=== PATIENT | female | born 1975 | race African-American/Black ===

== ENCOUNTER 2018-09-04 07:46 | Day surgery (SDC) | payer BC ==
[~2018-09-04] VITALS: Ht 154.9 cm; Wt 79.6 kg
[2018-09-04 08:10] VITALS: BP 120/78; PULSE 87; TEMP 98.6
[2018-09-04] MEDS ORDERED: ZOLOFT 50MG50 MG PO (08:20)
[2018-09-04] MEDS ORDERED: ATARAX 25MG25 MG/TAB PO (08:20)
[2018-09-04] MEDS ORDERED: ADVIL200 MG PO (08:21)
[2018-09-04 09:25] VITALS: BP 103/76; PULSE 76; TEMP 97.8
[2018-09-04 09:40] VITALS: BP 110/77; PULSE 79
[2018-09-04 09:55] VITALS: BP 115/74; PULSE 81
== END 2018-09-04 10:27 | disposition home or self-care (01) ==
LOC: SDCO 07:46
DX: K64.0 First degree hemorrhoids (principal); Z87.19 Personal history of other diseases of the digestive system
CPT/HCPCS: OP; J2250; J2405; J3010; J7030

== ENCOUNTER → 2019-03-04 | Outpatient (CLI) | payer BC ==
[~2019-03-04] MED LIST: ADVIL200 MG PO; ATARAX 25MG25 MG/TAB PO; ZOLOFT 50MG50 MG PO
== END ==
LOC: COL.RAD 07:48
DX: R68.81 Early satiety (principal)
CPT/HCPCS: A9541

== ENCOUNTER 2019-04-05 07:27 | Day surgery (SDC) | payer BC ==
[~2019-04-05] VITALS: Ht 154.9 cm; Wt 81.0 kg
[~2019-04-05 07:27] MED LIST changes: +ZOLOFT 100MG100 MG PO; -ZOLOFT 50MG50 MG PO
[2019-04-05] MEDS ORDERED: FLEXERIL 1010 MG/TAB PO (07:42)
[2019-04-05] MEDS ORDERED: PRILOSEC 20MG20 MG PO (07:42)
[2019-04-05] MEDS ORDERED: ALLEGRA ALLERG180 MG PO (07:44)
[2019-04-05 08:06] VITALS: BP 118/71; PULSE 88; TEMP 98.5
[2019-04-05 08:54] VITALS: BP 117/64; PULSE 79; TEMP 97.4
--- NOTE | 2019-04-05 08:54 | NUR ---
Pt to [facility] via cart from ENDO. Pt drowsy, but awake. Denies pain or nausea. Pt ambulates to recliner with stand by assistance. Daughter in room. Warm blanket placed on pt for comfort. Call light within reach. Will continue to monitor.
[2019-04-05 09:09] VITALS: BP 114/75; PULSE 73
--- NOTE | 2019-04-05 09:09 | NUR ---
Pt resting. Denies needs. Call light within reach.
[2019-04-05 09:24] VITALS: BP 101/59; PULSE 74
--- NOTE | 2019-04-05 09:24 | NUR ---
Pt continues to rest. Pt takes sips of water without difficulties. Will continue to monitor. Call light within reach.
[2019-04-05 09:39] VITALS: BP 110/62; PULSE 80
--- NOTE | 2019-04-05 09:39 | NUR ---
Pt continues to rest. Taking sips of water without difficulties. Call light within reach.
--- NOTE | 2019-04-05 10:00 | NUR ---
Discharge instructions reviewed. Pt voices understanding. IV site disocontinued with all parts intact. Pt up to dress. Call light within reach.
--- NOTE | 2019-04-05 10:28 | NUR ---
Pt escorted to private car via wheel chair. Pt accompanied home by her daughter.
[2019-04-05 13:15] VITALS: BP 105/82; PULSE 90
== END 2019-04-05 10:29 | disposition home or self-care (01) ==
LOC: SDCO 07:27
DX: K21.0 Gastro-esophageal reflux disease with esophagitis (principal); K44.9 Diaphragmatic hernia without obstruction or gangrene; F41.9 Anxiety disorder, unspecified; F32.9 Major depressive disorder, single episode, unspecified; K64.9 Unspecified hemorrhoids; Z90.49 Acquired absence of other specified parts of digestive tract
CPT/HCPCS: J2250; J3010; J7030

== ENCOUNTER → 2019-10-29 | Outpatient (CLI) | payer BC ==
[~2019-10-29] MED LIST changes: +ALLEGRA ALLERG180 MG PO; +FLEXERIL 1010 MG/TAB PO; +PRILOSEC 20MG20 MG PO
== END ==
LOC: COL.RAD 10:02
DX: M32.9 Systemic lupus erythematosus, unspecified (principal)